=== PATIENT | female | born 1980 ===

== ENCOUNTER 2017-06-21 07:02 | Outpatient (CLI) | payer BC | END 2017-06-21 07:03 | disposition home or self-care (01) | LOC: BICULT 07:02 | PROVIDERS: ATTEND Family Medicine | DX: R93.5 Abnormal findings on diagnostic imaging of other abdominal regions, including retroperitoneum (principal); K76.89 Other specified diseases of liver | CPT/HCPCS: 76700 ==

== ENCOUNTER 2018-07-05 06:40 | Outpatient (CLI) | payer BC ==
--- NOTE | 2018-07-05 09:45 | ULT ---
RIGHT UPPER QUADRANT ULTRASOUND: DATE: 07/05/2018. HISTORY: Hemangioma, gallbladder polyp. COMPARISON: 06/21/2017. FINDINGS: Again, there is a stable echogenic focus seen within the gallbladder lumen measuring approximately 5 mm. This likely represents a gallbladder polyp but is larger than typically expected. No gallbladde r calculus is seen. There is no gallbladder wall thickening or pericholecystic fluid. The common du ct measures 0.3 cm in diameter, which is within normal limits. Echogenic mass in the right hepatic lobe is again seen and is overall stable in appearance measuring 2.3 cm in maximal dimensions. The liver otherwise has a normal sonographic appearance. Limited visualized portions of the pancreas, visualized portions of the IVC, and right kidney demonst rate a normal sonographic appearance. The right kidney measures 10.5 cm in length. IMPRESSION: 1. Gallbladder polyp measuring approximately 5 mm. This is stable in appearance compared to the anayeli dy on 06/21/2017 as well as a study on 01/03/2017. However, given that the gallbladder polyp is large r than 4 mm, GI consultation is suggested. 2. Stable echogenic lesion right hepatic lobe which may represent a hemangioma. This is stable comp ared to prior exams; however, additional imaging with MRI would be helpful to confirm the presence of a hemangioma. POS: [facility]
== END 2018-07-05 06:41 | disposition home or self-care (01) ==
LOC: BICULT 06:40
PROVIDERS: ATTEND Family Medicine
DX: K82.4 Cholesterolosis of gallbladder (principal); D18.03 Hemangioma of intra-abdominal structures; K76.9 Liver disease, unspecified
CPT/HCPCS: 76705